=== PATIENT | female | born 1960 | race Caucasian/White ===

== ENCOUNTER 2019-01-24 13:35 | Emergency (ER) | payer MEDICAID ==
[~2019-01-24] VITALS: Ht 162.6 cm; Wt 63.5 kg
[2019-01-24 14:19] VITALS: BP 115/65
--- NOTE | 2019-01-24 14:23 | NUR ---
PT TO LOBBY
--- NOTE | 2019-01-24 14:42 | NUR ---
PT EVALUATED BY ANGELA. PT TO CHAIR FOR EAR IRRIGATION.
[2019-01-24 15:28] VITALS: BP 115/65
--- NOTE | 2019-01-24 15:28 | NUR ---
Patient discharged with v/s stable. Written and verbal after care instructions given and explained. Patient alert, oriented and verbalized understanding of instructions. Ambulatory with steady gait. All questions addressed prior to discharge. ID band removed. Patient advised to follow up with PMD. Rx of Ofloaxcin and Ibuprofen given. Patient educated on indication of medication including possible reaction and side effects. Opportunity to ask questions provided and answered.
== END 2019-01-24 15:28 | disposition home or self-care (01) ==
LOC: MED 13:35
DX: H61.23 Impacted cerumen, bilateral (principal); H60.91 Unspecified otitis externa, right ear; I10 Essential (primary) hypertension; Z98.890 Other specified postprocedural states
CPT/HCPCS: 99283